=== PATIENT | male | born 1965 | race African-American/Black ===

== ENCOUNTER 2017-06-14 17:22 | Inpatient (IN) | payer OTHER ==
[~2017-06-14] VITALS: Ht 162.6 cm; Wt 74.8 kg
[2017-06-14] MEDS ORDERED: LANTUS SOL100 UNIT/1 SUBQ (18:01)
--- NOTE | 2017-06-14 18:21 | Emergency Room Report ---
History of Present Illness General Chief Complaint: General Complaint Source: Patient Present Illness HPI 52-year-old male presents to the emergency department complaining of weakness and dizziness 1 week. Patient reports that he has no previous medical history other than diabetes requiring insulin in the morning and night. Patient states he was recently diagnosed with diabetes he takes 30 units in the morning, and if needed 30 at night. Patient states last time he had any was last night patient reports intermittent palpitations and dizziness when he sits up or stands up. Patient denies symptoms of vertigo he denies recent head trauma denies fevers, chills. Patient reports polyuria and polydipsia. He denies abdominal pain, nausea, vomiting. Denies CP, Palpitations, LOC, AMS, dizziness, Changes in Vision, Sensation, paresthesias, or a sudden severe headache. Allergies: Coded Allergies: No Known Allergies (Unverified , 06/14/17) Patient History Past Medical History: see triage record, DM Past Surgical History: none Pertinent Family History: none Reviewed Nursing Documentation: PMH: Agreed, PSxH: Agreed Nursing Documentation-PMH Past Medical History: No History, Except For Review of Systems All Other Systems: negative except mentioned in HPI Physical Exam Vital Signs Date Time Temp Pulse Resp B/P (MAP) Pulse Ox O2 Delivery O2 Flow Rate FiO2 06/14/17 17:34 98.1 107 18 111/59 99 Room Air 98.1 Sp02 EP Interpretation: reviewed, normal General Appearance: no apparent distress, alert, GCS 15, non-toxic Head: normocephalic, atraumatic ENT: hearing grossly normal, normal voice Neck: full range of motion Respiratory: chest non-tender, lungs clear, normal breath sounds, no respiratory distress, no accessory muscle use, no wheezing, speaking full sentences, other - tachypneic Cardiovascular #1: regular rate, rhythm, no edema, normal capillary refill Gastrointestinal: normal bowel sounds, non tender, soft, no guarding Musculoskeletal: back normal, gait/station normal, normal range of motion, non- tender Neurologic: alert, oriented x3, responsive, motor strength/tone normal, sensory intact, normal gait, speech normal, grossly normal Psychiatric: judgement/insight normal Skin: normal color, no rash, warm/dry, well hydrated Medical Decision Making PA Attestation Dr. Love is my supervising Physician whom patient management has been discussed with. Diagnostic Impression: Primary Impression: Hyperglycemia due to type 2 diabetes mellitus Qualified Codes: E11.65 - Type 2 diabetes mellitus with hyperglycemia Additional Impression: Hypokalemia ER Course 52-year-old male presents to the emergency department complaining of weakness and dizziness 1 week. Patient reports that he has no previous medical history other than diabetes requiring insulin in the morning and night. Patient states he was recently diagnosed with diabetes he takes 30 units in the morning, and if needed 30 at night. Patient states last time he had any was last night patient reports intermittent palpitations and dizziness when he sits up or stands up. Patient denies symptoms of vertigo he denies recent head trauma denies fevers, chills. Patient reports polyuria and polydipsia. He denies abdominal pain, nausea, vomiting. Denies CP, Palpitations, LOC, AMS, dizziness, Changes in Vision, Sensation, paresthesias, or a sudden severe headache. Ddx considered but are not limited to OH, Dysrhythmia, CVA, DKA, hyperglycemia, electrolyte imbalance, dehydration just to name a few. Vital signs: tachypneic, otherwise are WNL, pt. is afebrile, tachypneic H&PE are most consistent with hyperglycemia ORDERS: -Bedside Accu-Chek about 500. -CBC,: Unremarkable CMP: glucose elevated 609, hyponatremia, hypokalemia *-Corrected Sodium Calc is 128. Negative acetone, Troponin,: 0.00/ WNL UA: 4+ glucose only - ABG: elevated PH, and low pc02, normal bicarb. ED INTERVENTIONS: -NS bolus 1 liter x 2 - 20 Meq KCl- IV -60meq Kcl PO - 10 Units Insulin IV DISPOSITION: at this time pt. will be admitted to for hyperglycemia. Signed out to Dr. Gamez for facilitation of admission Labs Test 06/14/17 18:08 06/14/17 18:23 Arterial Blood pH 7.527 (7.350-7.450) Arterial Blood Partial Pressure CO2 30.0 mmHg (35.0-45.0) Arterial Blood Partial Pressure O2 97.4 mmHg (75.0-100.0) Arterial Blood HCO3 24.3 mmol/L (22.0-26.0) Arterial Blood Oxygen Saturation 97.6 % (92.0-98.0) Arterial Blood Base Excess 2.4 Jose Test Positive White Blood Count 10.6 K/UL (4.8-10.8) Red Blood Count 4.46 M/UL (4.70-6.10) Hemoglobin 14.2 G/DL (14.2-18.0) Hematocrit 40.1 % (42.0-52.0) Mean Corpuscular Volume 90 FL (80-99) Mean Corpuscular Hemoglobin 31.8 PG (27.0-31.0) Mean Corpuscular Hemoglobin Concent 35.4 G/DL (32.0-36.0) Red Cell Distribution Width 10.3 % (11.6-14.8) Platelet Count 371 K/UL (150-450) Mean Platelet Volume 6.2 FL (6.5-10.1) Neutrophils (%) (Auto) 59.9 % (45.0-75.0) Lymphocytes (%) (Auto) 31.0 % (20.0-45.0) Monocytes (%) (Auto) 7.9 % (1.0-10.0) Eosinophils (%) (Auto) 0.1 % (0.0-3.0) Basophils (%) (Auto) 1.1 % (0.0-2.0) Urine Color Pale yellow Urine Appearance Clear Urine pH 6 (4.5-8.0) Urine Specific [place] 1.010 (1.005-1.035) Urine Protein Negative (NEGATIVE) Urine Glucose (UA) 4+ (NEGATIVE) Urine Ketones Negative (NEGATIVE) Urine Occult Blood Negative (NEGATIVE) Urine Nitrite Negative (NEGATIVE) Urine Bilirubin Negative (NEGATIVE) Urine Urobilinogen Normal MG/DL (0.0-1.0) Urine Leukocyte Esterase Negative (NEGATIVE) Sodium Level 116 MMOL/L (136-145) Potassium Level 2.7 MMOL/L (3.5-5.1) Chloride Level 76 MMOL/L (98-107) Carbon Dioxide Level 28 MMOL/L (21-32) Anion Gap 12 mmol/L (5-15) Blood Urea Nitrogen 22 mg/dL (7-18) Creatinine 1.9 MG/DL (0.55-1.30) Estimat Glomerular Filtration Rate 45.3 mL/min (>60) Glucose Level 609 MG/DL (74-106) Calcium Level 9.2 MG/DL (8.5-10.1) Magnesium Level 2.0 MG/DL (1.8-2.4) Total Bilirubin 0.4 MG/DL (0.2-1.0) Aspartate Amino Transf (AST/SGOT) 13 U/L (15-37) Alanine Aminotransferase (ALT/SGPT) 16 U/L (12-78) Alkaline Phosphatase 104 U/L (46-116) Troponin I 0.000 ng/mL (0.000-0.056) Total Protein 7.6 G/DL (6.4-8.2) Albumin 3.5 G/DL (3.4-5.0) Globulin 4.1 g/dL Albumin/Globulin Ratio 0.9 (1.0-2.7) Acetone Level Negative (NEGATIVE) EKG Diagnostic Results EP Interpretation: Dr. Love Rate: normal Rhythm: NSR ST Segments: other - inverted T-waves in leads 2, 3 and AvF. ASA given to the pt in ED: No PA Scribe Text This EKG interpretation has been scribed by ENRIQUE Askew Last Vital Signs Date Time Temp Pulse Resp B/P (MAP) Pulse Ox O2 Delivery O2 Flow Rate FiO2 06/14/17 17:34 98.1 107 18 111/59 99 Room Air 98.1 Disposition: ADMITTED INPATIENT Condition: Serious Signed Out To: Dr. Gamez Referrals: [facility],REFERRING (PCP) Anastasia Askew Jun 14, 2017 18:21
[2017-06-14 18:43] LABS: APPEARANCE,URINE CLEAR; BILIRUBIN, URINE NEGATIVE (NEGATIVE); COLOR,URINE PALE YELLOW; GLUCOSE, URINE (UA) 4+ (NEGATIVE); KETONES,URINE NEGATIVE (NEGATIVE); LEUKOCYTE ESTERASE ,URINE NEGATIVE (NEGATIVE); NITRITE,URINE NEGATIVE (NEGATIVE); PH,URINE 6 (4.5-8.0); PROTEIN,URINE NEGATIVE (NEGATIVE); UROBILINOGEN,URINE NORMAL MG/DL (0.0-1.0)
[2017-06-14 18:53] LABS: BASOPHILS % (AUTO) 1.1 % (0.0-2.0); EOSINOPHILS % (AUTO) 0.1 % (0.0-3.0); HEMATOCRIT 40.1 % (42.0-52.0); HEMOGLOBIN 14.2 G/DL (14.2-18.0); MEAN CORPUSCULAR VOLUME 90 FL (80-99); MONOCYTES % (AUTO) 7.9 % (1.0-10.0); NEUTROPHILS % (AUTO) 59.9 % (45.0-75.0); PLATELET COUNT 371 K/UL (150-450); RED BLOOD COUNT 4.46 M/UL (4.70-6.10); RED CELL DISTRIBUTION WIDTH 10.3 % (11.6-14.8); WHITE BLOOD COUNT 10.6 K/UL (4.8-10.8)
[2017-06-14 19:10] LABS: ALANINE AMINOTRANSFERASE 16 U/L (12-78); ALBUMIN 3.5 G/DL (3.4-5.0); ALBUMIN/GLOBULIN RATIO 0.9 (1.0-2.7); ALKALINE PHOSPHATASE 104 U/L (46-116); ANION GAP 12 mmol/L (5-15); ASPARTATE AMINO TRANSFERASE 13 U/L (15-37); BILIRUBIN,TOTAL 0.4 MG/DL (0.2-1.0); BLOOD UREA NITROGEN 22 mg/dL (7-18); CALCIUM 9.2 MG/DL (8.5-10.1); CARBON DIOXIDE 28 MMOL/L (21-32); CHLORIDE 76 MMOL/L (98-107); CREATININE 1.9 MG/DL (0.55-1.30)
[2017-06-14 19:13] LABS: POTASSIUM 2.7 MMOL/L (3.5-5.1); SODIUM 116 MMOL/L (136-145)
[2017-06-14 23:00] VITALS: BP 122/60
[2017-06-14] MEDS ORDERED: SEROQUEL300 MG ORAL (23:21)
[2017-06-15 00:45] VITALS: BP 113/71
[2017-06-15] MEDS ORDERED: Morphine Sulfate 2mg/ml Inj IVP PRN (01:30)
[2017-06-15] MEDS ORDERED: D5 1/2NS 1,000 ML IV SCH (01:30)
[2017-06-15 04:00] VITALS: BP 106/53
[2017-06-15] MEDS: NovoLOG Insulin Flexpen SUBQ SCH ×7 (06:23→20:48)
[2017-06-15 08:00] VITALS: BP 108/65
[2017-06-15 08:01] LABS: HEMATOCRIT 33.7 % (42.0-52.0); HEMOGLOBIN 11.9 G/DL (14.2-18.0); MEAN CORPUSCULAR VOLUME 90 FL (80-99); PLATELET COUNT 311 K/UL (150-450); RED BLOOD COUNT 3.74 M/UL (4.70-6.10); RED CELL DISTRIBUTION WIDTH 10.5 % (11.6-14.8); WHITE BLOOD COUNT 8.1 K/UL (4.8-10.8)
[2017-06-15 08:10] LABS: ANION GAP 7 mmol/L (5-15); BLOOD UREA NITROGEN 14 mg/dL (7-18); CALCIUM 8.2 MG/DL (8.5-10.1); CARBON DIOXIDE 29 MMOL/L (21-32); CHLORIDE 92 MMOL/L (98-107); CREATININE 1.3 MG/DL (0.55-1.30); POTASSIUM 2.5 MMOL/L (3.5-5.1); SODIUM 128 MMOL/L (136-145)
--- NOTE | 2017-06-15 08:17 | Consultation ---
Consult Note Consult Note asked to eval for Na 116 52-year-old male presents to the emergency department complaining of weakness and dizziness 1 week. Patient reports that he has no previous medical history other than diabetes requiring insulin in the morning and night. Patient states he was recently diagnosed with diabetes he takes 30 units in the morning, and if needed 30 at night. Patient states last time he had any was last night patient reports intermittent palpitations and dizziness when he sits up or stands up. Patient denies symptoms of vertigo he denies recent head trauma denies fevers, chills. Patient reports polyuria and polydipsia. He denies abdominal pain, nausea, vomiting. Denies CP, Palpitations, LOC, AMS, dizziness, Changes in Vision, Sensation, paresthesias, or a sudden severe headache. admitted for high Glucose h/o Dm and psych disease Assessment/Plan Hyponatremia: ? Depletionaal DM OOC Anemia Plan: Urine studies S osmolality , TSH , Uric 3% Saline fu after above results monitor lytierra [place] and Phos supplement ANA HUNTER Jun 15, 2017 08:16
[2017-06-15 08:42] LABS: ALANINE AMINOTRANSFERASE 15 U/L (12-78); ALBUMIN/GLOBULIN RATIO 0.9 (1.0-2.7); ALKALINE PHOSPHATASE 82 U/L (46-116); ANION GAP 9 mmol/L (5-15); ASPARTATE AMINO TRANSFERASE 14 U/L (15-37); BILIRUBIN,TOTAL 0.5 MG/DL (0.2-1.0); BLOOD UREA NITROGEN 14 mg/dL (7-18); CALCIUM 8.4 MG/DL (8.5-10.1); CARBON DIOXIDE 27 MMOL/L (21-32); CHLORIDE 92 MMOL/L (98-107); CREATININE 1.3 MG/DL (0.55-1.30); PHOSPHORUS 1.9 MG/DL (2.5-4.9); SODIUM 128 MMOL/L (136-145)
[2017-06-15 08:49] LABS: CHOLESTEROL 195 MG/DL (< 200); HDL CHOLESTEROL 45 MG/DL (40-60); TRIGLYCERIDES 157 MG/DL (30-150)
[2017-06-15 08:58] LABS: POTASSIUM 2.6 MMOL/L (3.5-5.1)
[2017-06-15] MEDS ORDERED: NaCl 3% 500ml 500 ML IV ONE (09:30)
[2017-06-15] MEDS: Levemir Flexpen SUBQ SCH ×2 (09:55→20:47)
--- NOTE | 2017-06-15 11:36 | Neurology Progress Note ---
Objective Physical Exam Last Vital Signs Date Time Temp Pulse Resp B/P (MAP) Pulse Ox O2 Delivery O2 Flow Rate FiO2 06/15/17 08:00 97.2 96 18 108/65 97 Room Air 97.2 Laboratory Tests Test 06/14/17 18:08 06/14/17 18:23 06/15/17 06:50 Arterial Blood pH 7.527 (7.350-7.450) Arterial Blood Partial Pressure CO2 30.0 mmHg (35.0-45.0) L Arterial Blood Partial Pressure O2 97.4 mmHg (75.0-100.0) Arterial Blood HCO3 24.3 mmol/L (22.0-26.0) Arterial Blood Oxygen Saturation 97.6 % (92.0-98.0) Arterial Blood Base Excess 2.4 Jose Test Positive White Blood Count 10.6 K/UL (4.8-10.8) 8.1 K/UL (4.8-10.8) Red Blood Count 4.46 M/UL (4.70-6.10) L 3.74 M/UL (4.70-6.10) L Hemoglobin 14.2 G/DL (14.2-18.0) 11.9 G/DL (14.2-18.0) L Hematocrit 40.1 % (42.0-52.0) L 33.7 % (42.0-52.0) L Mean Corpuscular Volume 90 FL (80-99) 90 FL (80-99) Mean Corpuscular Hemoglobin 31.8 PG (27.0-31.0) H 31.9 PG (27.0-31.0) H Mean Corpuscular Hemoglobin Concent 35.4 G/DL (32.0-36.0) 35.4 G/DL (32.0-36.0) Red Cell Distribution Width 10.3 % (11.6-14.8) L 10.5 % (11.6-14.8) L Platelet Count 371 K/UL (150-450) 311 K/UL (150-450) Mean Platelet Volume 6.2 FL (6.5-10.1) L 6.0 FL (6.5-10.1) L Neutrophils (%) (Auto) 59.9 % (45.0-75.0) % (45.0-75.0) Lymphocytes (%) (Auto) 31.0 % (20.0-45.0) % (20.0-45.0) Monocytes (%) (Auto) 7.9 % (1.0-10.0) % (1.0-10.0) Eosinophils (%) (Auto) 0.1 % (0.0-3.0) % (0.0-3.0) Basophils (%) (Auto) 1.1 % (0.0-2.0) % (0.0-2.0) Urine Color Pale yellow Urine Appearance Clear Urine pH 6 (4.5-8.0) Urine Specific [place] 1.010 (1.005-1.035) Urine Protein Negative (NEGATIVE) Urine Glucose (UA) 4+ (NEGATIVE) H Urine Ketones Negative (NEGATIVE) Urine Occult Blood Negative (NEGATIVE) Urine Nitrite Negative (NEGATIVE) Urine Bilirubin Negative (NEGATIVE) Urine Urobilinogen Normal MG/DL (0.0-1.0) Urine Leukocyte Esterase Negative (NEGATIVE) Sodium Level 116 MMOL/L (136-145) *L 128 MMOL/L (136-145) L Potassium Level 2.7 MMOL/L (3.5-5.1) *L 2.6 MMOL/L (3.5-5.1) *L Chloride Level 76 MMOL/L (98-107) L 92 MMOL/L (98-107) L Carbon Dioxide Level 28 MMOL/L (21-32) 27 MMOL/L (21-32) Anion Gap 12 mmol/L (5-15) 9 mmol/L (5-15) Blood Urea Nitrogen 22 mg/dL (7-18) H 14 mg/dL (7-18) Creatinine 1.9 MG/DL (0.55-1.30) H 1.3 MG/DL (0.55-1.30) Estimat Glomerular Filtration Rate 45.3 mL/min (>60) > 60 mL/min (>60) Glucose Level 609 MG/DL (74-106) *H 314 MG/DL (74-106) H Calcium Level 9.2 MG/DL (8.5-10.1) 8.4 MG/DL (8.5-10.1) L Magnesium Level 2.0 MG/DL (1.8-2.4) 1.8 MG/DL (1.8-2.4) Total Bilirubin 0.4 MG/DL (0.2-1.0) 0.5 MG/DL (0.2-1.0) Aspartate Amino Transf (AST/SGOT) 13 U/L (15-37) L 14 U/L (15-37) L Alanine Aminotransferase (ALT/SGPT) 16 U/L (12-78) 15 U/L (12-78) Alkaline Phosphatase 104 U/L (46-116) 82 U/L (46-116) Troponin I 0.000 ng/mL (0.000-0.056) Total Protein 7.6 G/DL (6.4-8.2) 6.2 G/DL (6.4-8.2) L Albumin 3.5 G/DL (3.4-5.0) 3.0 G/DL (3.4-5.0) L Globulin 4.1 g/dL 3.2 g/dL Albumin/Globulin Ratio 0.9 (1.0-2.7) L 0.9 (1.0-2.7) L Acetone Level Negative (NEGATIVE) Differential Total Cells Counted 100 Neutrophils % (Manual) 37 % (45-75) L Lymphocytes % (Manual) 53 % (20-45) H Monocytes % (Manual) 10 % (1-10) Eosinophils % (Manual) 0 % (0-3) Basophils % (Manual) 0 % (0-2) Band Neutrophils 0 % (0-8) Platelet Estimate Adequate Platelet Morphology Normal Anisocytosis 1+ Hemoglobin A1c 12.0 % (4.3-6.0) H Osmolality 280 mOsm/kg (297-317) L Uric Acid 4.9 MG/DL (2.6-7.2) Phosphorus Level 1.9 MG/DL (2.5-4.9) L Triglycerides Level 157 MG/DL (30-150) H Cholesterol Level 195 MG/DL (< 200) LDL Cholesterol 128 mg/dL (<100) H HDL Cholesterol 45 MG/DL (40-60) Cholesterol/HDL Ratio 4.3 (3.3-4.4) Thyroid Stimulating Hormone (TSH) 1.588 uiU/mL (0.358-3.740) Impression/Recommendations Problems: (1) Syncope and collapse (2) Hyperglycemia due to type 2 diabetes mellitus Status: unchanged Recommendations #[id number] IVETH ROSENTHAL Jun 15, 2017 11:36
[2017-06-15 12:00] VITALS: BP 110/68
--- NOTE | 2017-06-15 15:06 | Cardiac Electrophysiology PN ---
Subjective Subjective Dictated [id number] Objective Last 24 Hour Vital Signs Date Time Temp Pulse Resp B/P (MAP) Pulse Ox O2 Delivery O2 Flow Rate FiO2 06/15/17 12:00 88 06/15/17 08:00 97.2 96 18 108/65 97 Room Air 97.2 06/15/17 08:00 97 06/15/17 04:00 97.3 101 20 106/53 96 Room Air 97.3 06/15/17 04:00 97 06/15/17 00:45 97.9 101 18 113/71 100 Room Air 97.9 06/15/17 00:30 98.1 90 14 122/60 100 Room Air 98.1 06/14/17 23:00 98.1 90 14 122/60 100 Room Air 98.1 06/14/17 17:34 98.1 107 18 111/59 99 Room Air 98.1 Intake and Output 06/14/17 06/15/17 19:00 07:00 Intake Total 313 ml Balance 313 ml IV Total 313 ml # Voids 1 2 Laboratory Tests Test 06/14/17 18:08 06/14/17 18:23 06/15/17 06:50 Arterial Blood pH 7.527 (7.350-7.450) Arterial Blood Partial Pressure CO2 30.0 mmHg (35.0-45.0) L Arterial Blood Partial Pressure O2 97.4 mmHg (75.0-100.0) Arterial Blood HCO3 24.3 mmol/L (22.0-26.0) Arterial Blood Oxygen Saturation 97.6 % (92.0-98.0) Arterial Blood Base Excess 2.4 Jose Test Positive White Blood Count 10.6 K/UL (4.8-10.8) 8.1 K/UL (4.8-10.8) Red Blood Count 4.46 M/UL (4.70-6.10) L 3.74 M/UL (4.70-6.10) L Hemoglobin 14.2 G/DL (14.2-18.0) 11.9 G/DL (14.2-18.0) L Hematocrit 40.1 % (42.0-52.0) L 33.7 % (42.0-52.0) L Mean Corpuscular Volume 90 FL (80-99) 90 FL (80-99) Mean Corpuscular Hemoglobin 31.8 PG (27.0-31.0) H 31.9 PG (27.0-31.0) H Mean Corpuscular Hemoglobin Concent 35.4 G/DL (32.0-36.0) 35.4 G/DL (32.0-36.0) Red Cell Distribution Width 10.3 % (11.6-14.8) L 10.5 % (11.6-14.8) L Platelet Count 371 K/UL (150-450) 311 K/UL (150-450) Mean Platelet Volume 6.2 FL (6.5-10.1) L 6.0 FL (6.5-10.1) L Neutrophils (%) (Auto) 59.9 % (45.0-75.0) % (45.0-75.0) Lymphocytes (%) (Auto) 31.0 % (20.0-45.0) % (20.0-45.0) Monocytes (%) (Auto) 7.9 % (1.0-10.0) % (1.0-10.0) Eosinophils (%) (Auto) 0.1 % (0.0-3.0) % (0.0-3.0) Basophils (%) (Auto) 1.1 % (0.0-2.0) % (0.0-2.0) Urine Color Pale yellow Urine Appearance Clear Urine pH 6 (4.5-8.0) Urine Specific [place] 1.010 (1.005-1.035) Urine Protein Negative (NEGATIVE) Urine Glucose (UA) 4+ (NEGATIVE) H Urine Ketones Negative (NEGATIVE) Urine Occult Blood Negative (NEGATIVE) Urine Nitrite Negative (NEGATIVE) Urine Bilirubin Negative (NEGATIVE) Urine Urobilinogen Normal MG/DL (0.0-1.0) Urine Leukocyte Esterase Negative (NEGATIVE) Sodium Level 116 MMOL/L (136-145) *L 128 MMOL/L (136-145) L Potassium Level 2.7 MMOL/L (3.5-5.1) *L 2.6 MMOL/L (3.5-5.1) *L Chloride Level 76 MMOL/L (98-107) L 92 MMOL/L (98-107) L Carbon Dioxide Level 28 MMOL/L (21-32) 27 MMOL/L (21-32) Anion Gap 12 mmol/L (5-15) 9 mmol/L (5-15) Blood Urea Nitrogen 22 mg/dL (7-18) H 14 mg/dL (7-18) Creatinine 1.9 MG/DL (0.55-1.30) H 1.3 MG/DL (0.55-1.30) Estimat Glomerular Filtration Rate 45.3 mL/min (>60) > 60 mL/min (>60) Glucose Level 609 MG/DL (74-106) *H 314 MG/DL (74-106) H Calcium Level 9.2 MG/DL (8.5-10.1) 8.4 MG/DL (8.5-10.1) L Magnesium Level 2.0 MG/DL (1.8-2.4) 1.8 MG/DL (1.8-2.4) Total Bilirubin 0.4 MG/DL (0.2-1.0) 0.5 MG/DL (0.2-1.0) Aspartate Amino Transf (AST/SGOT) 13 U/L (15-37) L 14 U/L (15-37) L Alanine Aminotransferase (ALT/SGPT) 16 U/L (12-78) 15 U/L (12-78) Alkaline Phosphatase 104 U/L (46-116) 82 U/L (46-116) Troponin I 0.000 ng/mL (0.000-0.056) Total Protein 7.6 G/DL (6.4-8.2) 6.2 G/DL (6.4-8.2) L Albumin 3.5 G/DL (3.4-5.0) 3.0 G/DL (3.4-5.0) L Globulin 4.1 g/dL 3.2 g/dL Albumin/Globulin Ratio 0.9 (1.0-2.7) L 0.9 (1.0-2.7) L Acetone Level Negative (NEGATIVE) Differential Total Cells Counted 100 Neutrophils % (Manual) 37 % (45-75) L Lymphocytes % (Manual) 53 % (20-45) H Monocytes % (Manual) 10 % (1-10) Eosinophils % (Manual) 0 % (0-3) Basophils % (Manual) 0 % (0-2) Band Neutrophils 0 % (0-8) Platelet Estimate Adequate Platelet Morphology Normal Anisocytosis 1+ Hemoglobin A1c 12.0 % (4.3-6.0) H Osmolality 280 mOsm/kg (297-317) L Uric Acid 4.9 MG/DL (2.6-7.2) Phosphorus Level 1.9 MG/DL (2.5-4.9) L Triglycerides Level 157 MG/DL (30-150) H Cholesterol Level 195 MG/DL (< 200) LDL Cholesterol 128 mg/dL (<100) H HDL Cholesterol 45 MG/DL (40-60) Cholesterol/HDL Ratio 4.3 (3.3-4.4) Thyroid Stimulating Hormone (TSH) 1.588 uiU/mL (0.358-3.740) SHABNAM BURNETT Jun 15, 2017 15:06
--- NOTE | 2017-06-15 15:27 | Diagnostic Imaging Report ---
Indication: Altered mental status Technique: sagittal T1 fast spin echo, axial T1 FLAIR, axial T2 FLAIR, axial T2 FS PROPELLER, axial T2* GRE, axial diffusion weighted images. ADC and exponential ADC maps generated Comparison: none Findings: Motion artifact degrades some of the sequences. No abnormal areas of restricted diffusion to suggest acute infarction. No acute hemorrhage or edema. No mass effect nor midline shift. There is mild age-related enlargement of the ventricles and extra axial CSF spaces.. Visualized orbits and sinuses are unremarkable. Impression: Mild age-related volume loss Negative for acute intracranial bleed, mass effect, or infarct
[2017-06-15 16:00] VITALS: BP 111/72
[2017-06-15] MEDS ORDERED: Potassium Phosphate 30 MM in NS 275 ML IV ONE (17:00)
[2017-06-15 20:00] VITALS: BP 105/69
--- NOTE | 2017-06-15 21:00 | History and Physical Report ---
DATE OF ADMISSION: 06/14/2017 TIME: 2 p.m. CONSULTANTS: 1. Rogelio Fraser M.D. 2. Jhonny Oconnell M.D. 3. Jacky Bernard M.D. 4. Rashard Plummer M.D. CHIEF COMPLAINT: Weakness, lightheaded, IDDM, hypokalemia. BRIEF HISTORY: This 52-year-old male, who lives at home, presents with a history of weakness, possible syncopal episode after feeling lightheaded, thought sugar may be low. The patient came, diagnosed with weakness and loss of consciousness, IDDM, and hypokalemia, admitted to telemetry for further care. Currently, calm in bed. No complaint. No chest pain. No shortness of breath. No nausea, vomiting, or diarrhea. PAST MEDICAL HISTORY: IDDM. PAST SURGICAL HISTORY: Heart surgery. MEDICATIONS: Levemir, NovoLog, dextrose, insulin, quetiapine, morphine and potassium. ALLERGIES: Denies. SOCIAL HISTORY: No smoking. No alcohol. No intravenous drug abuse. FAMILY HISTORY: Noncontributory. PHYSICAL EXAMINATION: GENERAL: Calm in bed, oriented x3, no acute distress. VITAL SIGNS: Temperature is 97 degrees, pulse 96, respirations 18, and blood pressure 108/65. CARDIOVASCULAR: No murmur. LUNGS: Distant and clear. ABDOMEN: Positive bowel sounds. Soft, nontender and nondistended. EXTREMITIES: No cyanosis, clubbing, or edema. NEUROLOGIC: The patient moves all extremities, but slightly weak. LABORATORY AND DIAGNOSTIC DATA: Hemoglobin and hematocrit 11.9/33 and otherwise CBC is normal. Sodium 128, potassium 2.6, chloride 92, and glucose 314. Calcium 8.4. Albumin 3.0. Triglycerides 157 otherwise normal. Urinalysis, 4+ glucose. Urine toxicology is acetone negative. ASSESSMENT: 1. Lightheaded, loss of consciousness. 2. Weakness. 3. Insulin-dependent diabetes mellitus. 4. Hypoalbumin. 5. Hypokalemia. PLAN: Replace potassium. OT/PT. Dietary evaluation. CBC and BMP in the morning. Blood pressure and blood sugar control. Dr. Fraser, Dr. Oconnell, Dr. Bernard, and Dr. Champagne to consult. We will continue to follow this patient. Jason Fields D.O. DR: RICK JOB#: [id number] CC:
--- NOTE | 2017-06-15 22:15 | Consultation ---
DATE OF CONSULTATION: 06/15/2017 NEUROLOGICAL CONSULTATION CONSULTING PHYSICIAN: Jhonny Oconnell M.D. REQUESTING PHYSICIAN: Jason Fields D.O. HISTORY OF PRESENT ILLNESS: This is a 52-year-old male, seen in neurological consultation to evaluate the episodes of transient unresponsiveness. According to the patient, he was diagnosed with diabetes approximately two months ago and placed on insulin. He indicates that prior to being diagnosed, he was "not drinking water ever" but instead having a pint of juice daily. The patient was admitted to this hospital after having an episode of unresponsiveness. He informed that last week he had some generalized weakness and dizziness occurring when he was getting up. On the day of admission, as he woke up, he felt lightheaded when he got up, he lost consciousness and fell down to the ground. He found himself lying on the ground without evidence of trauma without tongue biting. No urine or bowel incontinence, but had profound generalized weakness, later he was able to get up on his own and lie down resting in bed. He continued to have dizziness predominantly when he tried to get up. With this, he was brought to emergency room. He was indicating that he has evidence of polyuria and polydipsia, had intermittent palpitations, positional dizziness. There was no evidence of vertigo. No nausea. No vomiting. No unilateral weakness, numbness, or tingling. His vital signs on admission were stable, blood pressure 111/59, respirations 18, heart rate of 107 and temperature 98.1 degrees. Laboratory work included CBC study with hematocrit 40.1, elevated MCH. His urinalysis, 4+ glucose. Toxicology panel, acetone negative. Chemistry panel on admission with sodium , potassium 2.7. BUN of 22, creatinine 1.9, and blood sugar of 609. Normal troponin. Blood sugar down to 314. Osmolality 280. He has a positive hemoglobin A1c of 12.0. Low calcium 8.4, phosphorus 1.9, albumin 3.0. Lipid panel with elevated LDL of 128 and triglycerides of 157. Normal TSH. The patient indicated that he slept well, and while supine he is feeling fine except when trying to get up he developed dizziness. His treatment included normal saline bolus one liter with potassium supplement and 10 units insulin. Current vital signs with temperature 97.2 degrees, heart rate of 101, and blood pressure 106/53. PAST MEDICAL HISTORY: The patient has a history of psychiatric disorder, he is on Seroquel 300 mg at bedtime. Currently on insulin subcutaneously. SOCIAL HISTORY: He lives with his cousin. He works part-time as a stand-up architecture intern. Denies alcohol or drug abuse. Nonsmoker. FAMILY HISTORY: Noncontributory. REVIEW OF SYMPTOMS: Currently feeling well. No headache, but feels somewhat dizzy when getting up. No chest pain. No palpitations. No respiratory problems. Denies abdominal pain or discomfort. No urine or bowel incontinence. PHYSICAL EXAMINATION: GENERAL: A well-developed and well-nourished man, not in acute distress, lying comfortably in bed. VITAL SIGNS: Now are stable, heart rate of 100 and blood pressure 108/65. HEENT: Head, normocephalic. There is no evidence of trauma. Eyes, ears, and throat are clear. NECK: Supple. No meningeal signs. MUSCULOSKELETAL: Unremarkable. There are no deformities. Peripheral pulses 1+ symmetric. MENTAL STATUS: Alert and oriented x3. Speech is fluent. Language intact. Somewhat blunt affect, but coherent. Follows commands. CRANIAL NERVE II: Pupils are 2 mm responding to light and accommodation. Extraocular movement intact. No nystagmus. There is enlargement of right orbital fissure. CRANIAL NERVE VII: No facial asymmetry. CRANIAL NERVE VIII: Normal hearing. CRANIAL NERVES IX THROUGH XII: Tongue is in midline. Symmetric palate elevation. MOTOR EXAMINATION: Normal muscle tone and strength 5/5 in all extremities. No involuntary movement. No pronation drift. Deep tendon reflexes 1+ symmetric with downgoing toes on both sides. SENSORY EXAM: Normal to pinprick light touch. Gait is slow, but stable. IMPRESSION: 1. History of syncopal episode, probably vasovagal. There is no evidence of seizure activity. 2. Mild right facial weakness. 3. Insulin-dependent diabetes mellitus, poor control. 4. History of chronic psychiatric disorder. RECOMMENDATIONS: Check baseline MRI of the brain to rule out lacunar stroke to explain new right periorbital weakness. Continue with endocrine correction. Consider aspirin 81 mg q.i.d. and statins in presence of stroke risk factors. Thank you for allowing me to see this interesting patient in neurological consultation. Jhonny Kassidy Oconnell DR: MARIANNE JOB#: [id number] CC:
[2017-06-16] VITALS: BP 100/59
--- NOTE | 2017-06-16 01:00 | Consultation ---
DATE OF CONSULTATION: 06/15/2017 CARDIOLOGY CONSULTATION CONSULTING PHYSICIAN: Rashard Champagne M.D. REFERRING PHYSICIAN: Jason Fields D.O. REASON FOR CONSULTATION: Abnormal electrocardiogram and profound hypokalemia with potassium of 2.5. HISTORY OF PRESENT ILLNESS: The patient is a 52-year-old gentleman with history of insulin-dependent diabetes for last six months, who came to the emergency room after he had generalized weakness and dizziness for about a week. The patient also had a syncopal episode. The patient also had intermittent palpitation. The patient's blood glucose on admission was in 600 range, but the blood pressure was noted with a pulse of 107 and respirations of 18. His EKG showed inferior wall ischemia. His laboratory work, however, showed potassium only 2.5. Cardiology consultation was obtained for further evaluation and management. PAST MEDICAL HISTORY: Include insulin-dependent diabetes. SOCIAL HISTORY: Does not smoke or drink alcohol. FAMILY HISTORY: Noncontributory. REVIEW OF SYSTEMS: Performed and was negative other than what was mentioned in the history of present illness. PHYSICAL EXAMINATION: VITAL SIGNS: Blood pressure is 108/65, pulse 96, respirations 18, and temperature 97.2 degrees. HEAD AND NECK: Showed no JVD. LUNGS: Clear. CARDIOVASCULAR: Shows regular S1 and S2 with no gallop or murmur. ABDOMEN: Soft. EXTREMITIES: There is no pitting edema. LABORATORY DATA: His labs show sodium 128, potassium is 2.6, BUN of 14, creatinine 1.3, and glucose of 314. Hemoglobin A1c is 12. Calcium was 8.4. is 1.9. Triglycerides 157. TSH is 1.5. White count is 8.1, hemoglobin 11.9, and platelet count of 311. Acetaminophen level in the urine was negative. His urinalysis showed 4+ glucose. ASSESSMENT AND PLAN: 1. Abnormal electrocardiogram with inferior wall ischemia. We will completely rule out myocardial infarction protocol in this diabetic patient. He denies any chest pain. We will get an echocardiogram to evaluate for ejection fraction and wall motion abnormality as well. 2. Severe hypokalemia. Potassium will be replaced. 3. Insulin-dependent diabetes, blood glucose of more than 600, currently on insulin. 4. Status post syncope, could be secondary to the patient's severe hyperglycemia. Again, the patient will be undergoing a CT of the brain and a carotid duplex. Thank you very much, Dr. Fields, for allowing me to participate in the care of this patient. Please do not hesitate to contact me for any questions regarding my evaluation. Rashard Champagne M.D. DR: Kaelyn JOB#: [id number] CC:
[2017-06-16 04:00] VITALS: BP 99/69
[2017-06-16] MEDS: NovoLOG Insulin Flexpen SUBQ SCH ×3 (06:20→11:37)
--- NOTE | 2017-06-16 06:51 | General Progress Note ---
Assessment/Plan Problem List: (1) Hyperglycemia due to type 2 diabetes mellitus ICD Codes: E11.65 - Type 2 diabetes mellitus with hyperglycemia SNOMED: 294082856738124, 89594192 Qualifiers: Qualified Codes: E11.65 - Type 2 diabetes mellitus with hyperglycemia (2) Syncope and collapse ICD Codes: R55 - Syncope and collapse SNOMED: 326655847 (3) Hypokalemia ICD Codes: E87.6 - Hypokalemia SNOMED: 47261125 Assessment/Plan increase Levemir to 15 units bid increase Novolog to 10 units ac tid + NISS Subjective Allergies: Coded Allergies: No Known Allergies (Unverified , 06/14/17) All Systems: reviewed and negative except above Subjective presented to ED with symptomatic hyperglycemia, hypokalemia and weakness on Lantus 30 units bid as OP Objective Last 24 Hour Vital Signs Date Time Temp Pulse Resp B/P (MAP) Pulse Ox O2 Delivery O2 Flow Rate FiO2 06/16/17 03:33 92 06/16/17 00:00 98.2 98 20 100/59 99 Room Air 98.2 06/15/17 23:54 98 06/15/17 20:00 98.2 93 20 105/69 93 Room Air 98.2 06/15/17 19:06 92 06/15/17 16:00 97.2 98 18 111/72 97 Room Air 97.2 06/15/17 16:00 84 98 107 06/15/17 16:00 90 06/15/17 12:00 88 06/15/17 12:00 97.4 94 18 110/68 98 Room Air 97.4 06/15/17 08:00 97.2 96 18 108/65 97 Room Air 97.2 06/15/17 08:00 97 Intake and Output 06/15/17 06/16/17 19:00 07:00 Intake Total 536 ml Balance 536 ml Intake Oral 536 ml # Voids 1 Laboratory Tests 06/15/17 06:50: White Blood Count 8.1, Red Blood Count 3.74L, Hemoglobin 11.9L, Hematocrit 33.7L , Mean Corpuscular Volume 90, Mean Corpuscular Hemoglobin 31.9H, Mean Corpuscular Hemoglobin Concent 35.4, Red Cell Distribution Width 10.5L, Platelet Count 311, Mean Platelet Volume 6.0L, Neutrophils (%) (Auto) , Lymphocytes (%) (Auto) , Monocytes (%) (Auto) , Eosinophils (%) (Auto) , Basophils (%) (Auto) , Differential Total Cells Counted 100, Neutrophils % ( Manual) 37L, Lymphocytes % (Manual) 53H, Monocytes % (Manual) 10, Eosinophils % (Manual) 0, Basophils % (Manual) 0, Band Neutrophils 0, Platelet Estimate Adequate, Platelet Morphology Normal, Anisocytosis 1+, Sodium Level 128L, Potassium Level 2.6*L, Chloride Level 92L, Carbon Dioxide Level 27, Anion Gap 9 , Blood Urea Nitrogen 14, Creatinine 1.3, Estimat Glomerular Filtration Rate > 60, Glucose Level 314H, Hemoglobin A1c 12.0H, Osmolality 280L, Uric Acid 4.9, Calcium Level 8.4L, Phosphorus Level 1.9L, Magnesium Level 1.8, Total Bilirubin 0.5, Aspartate Amino Transf (AST/SGOT) 14L, Alanine Aminotransferase (ALT/SGPT) 15, Alkaline Phosphatase 82, C-Reactive Protein, Quantitative 0.6, Total Protein 6.2L, Albumin 3.0L, Globulin 3.2, Albumin/Globulin Ratio 0.9L, Triglycerides Level 157H, Cholesterol Level 195, LDL Cholesterol 128H, HDL Cholesterol 45, Cholesterol/HDL Ratio 4.3, Thyroid Stimulating Hormone (TSH) 1.588 06/15/17 15:40: Urine Osmolality 459H, Urine Random Sodium 47, Urine Opiates Screen Negative, Urine Barbiturates Screen Negative, Phencyclidine (PCP) Screen Negative, Urine Amphetamines Screen Negative, Urine Benzodiazepines Screen Negative, Urine Cocaine Screen Negative, Urine Marijuana (THC) Screen Negative Height (Feet): 5 Height (Inches): 4.00 Weight (Pounds): 165 General Appearance: no apparent distress Neck: normal alignment Cardiovascular: normal rate Respiratory/Chest: lungs clear Abdomen: normal bowel sounds Pelvis: normal external exam Edema: no edema noted Arm (L), no edema noted Arm (R), no edema noted Leg (L), no edema noted Leg (R), no edema noted Pedal (L), no edema noted Pedal (R), no edema noted Generalized Objective Current Medications Medications (Trade) Dose Ordered Sig/Dereck Route PRN Reason Start Time Stop Time Status Last Admin Dose Admin Dextrose (Dextrose 50%) STAT PRN IV Hypoglycemia 06/15/17 07:00 07/15/17 06:59 Insulin Aspart (NovoLOG) BEFORE MEALS AND HS SUBQ 06/15/17 06:30 07/15/17 06:29 06/16/17 06:20 Insulin Aspart (NovoLOG) 6 units NOVOTIAC SUBQ 06/15/17 08:00 07/15/17 07:59 06/16/17 06:21 Insulin Detemir (Levemir) 10 units Q12HR SUBQ 06/15/17 09:00 07/15/17 08:59 06/15/17 20:47 Morphine Sulfate (Morphine Sulfate) 2 mg Q4H PRN IVP For severe Pain 06/15/17 01:30 06/22/17 01:29 Potassium Chloride (K-Dur) 40 meq TWICE A DAY ORAL 06/16/17 09:00 07/16/17 08:59 Quetiapine Fumarate (SEROquel) 300 mg BEDTIME ORAL 06/15/17 02:15 07/15/17 02:14 06/15/17 20:45 Item Value Date Time Bedside Blood Glucose 214 mg/dl H 06/16/17 0630 Bedside Blood Glucose 288 mg/dl H 06/15/17 2100 Bedside Blood Glucose 283 mg/dl H 06/15/17 1738 Bedside Blood Glucose 267 mg/dl H 06/15/17 1152 Bedside Blood Glucose 281 mg/dl H 06/15/17 0955 Bedside Blood Glucose 327 mg/dl H 06/15/17 0623 Bedside Blood Glucose 201 mg/dl H 06/14/17 2336 JEMMA NOEL 16, 2018 06:51
[2017-06-16 08:00] VITALS: BP 107/71
[2017-06-16 08:44] LABS: HEMATOCRIT 34.2 % (42.0-52.0); MEAN CORPUSCULAR VOLUME 91 FL (80-99); PLATELET COUNT 311 K/UL (150-450); RED BLOOD COUNT 3.74 M/UL (4.70-6.10); RED CELL DISTRIBUTION WIDTH 10.7 % (11.6-14.8); WHITE BLOOD COUNT 6.6 K/UL (4.8-10.8)
[2017-06-16] MEDS ORDERED: Levemir Flexpen SUBQ SCH (09:00)
[2017-06-16 09:07] LABS: ALANINE AMINOTRANSFERASE 13 U/L (12-78); ALBUMIN 2.8 G/DL (3.4-5.0); ALBUMIN/GLOBULIN RATIO 0.8 (1.0-2.7); ALKALINE PHOSPHATASE 71 U/L (46-116); ASPARTATE AMINO TRANSFERASE 14 U/L (15-37); BILIRUBIN,TOTAL 0.4 MG/DL (0.2-1.0); BLOOD UREA NITROGEN 7 mg/dL (7-18); CALCIUM 8.1 MG/DL (8.5-10.1); CARBON DIOXIDE 23 MMOL/L (21-32); FERRITIN 480 NG/ML (8-388)
[2017-06-16 09:11] LABS: CHLORIDE 102 MMOL/L (98-107); POTASSIUM 3.9 MMOL/L (3.5-5.1); SODIUM 135 MMOL/L (136-145)
[2017-06-16 09:13] LABS: ANION GAP 10 mmol/L (5-15)
[2017-06-16 09:33] LABS: % IRON SATURATION 44 % (15-50); IRON 112 ug/dL (50-175); TOTAL IRON BINDING CAPACITY 255 ug/dL (250-450)
--- NOTE | 2017-06-16 10:57 | Neurology Progress Note ---
Interim History Interim History ROS Limited/Unobtainable: No Complaints: feel well Events: stable Objective Physical Exam Last Vital Signs Date Time Temp Pulse Resp B/P (MAP) Pulse Ox O2 Delivery O2 Flow Rate FiO2 06/16/17 08:00 96.3 104 18 107/71 96 Room Air 96.3 Laboratory Tests Test 06/15/17 15:40 06/16/17 07:00 Urine Osmolality 459 mOsm/kg (429-449) H Urine Random Sodium 47 mmol/L (20-110) Urine Opiates Screen Negative (NEGATIVE) Urine Barbiturates Screen Negative (NEGATIVE) Phencyclidine (PCP) Screen Negative (NEGATIVE) Urine Amphetamines Screen Negative (NEGATIVE) Urine Benzodiazepines Screen Negative (NEGATIVE) Urine Cocaine Screen Negative (NEGATIVE) Urine Marijuana (THC) Screen Negative (NEGATIVE) White Blood Count 6.6 K/UL (4.8-10.8) Red Blood Count 3.74 M/UL (4.70-6.10) L Hemoglobin 12.0 G/DL (14.2-18.0) L Hematocrit 34.2 % (42.0-52.0) L Mean Corpuscular Volume 91 FL (80-99) Mean Corpuscular Hemoglobin 31.9 PG (27.0-31.0) H Mean Corpuscular Hemoglobin Concent 34.9 G/DL (32.0-36.0) Red Cell Distribution Width 10.7 % (11.6-14.8) L Platelet Count 311 K/UL (150-450) Mean Platelet Volume 5.8 FL (6.5-10.1) L Neutrophils (%) (Auto) % (45.0-75.0) Lymphocytes (%) (Auto) % (20.0-45.0) Monocytes (%) (Auto) % (1.0-10.0) Eosinophils (%) (Auto) % (0.0-3.0) Basophils (%) (Auto) % (0.0-2.0) Neutrophils % (Manual) Pending Lymphocytes % (Manual) Pending Platelet Estimate Pending Platelet Morphology Pending Sodium Level 135 MMOL/L (136-145) L Potassium Level 3.9 MMOL/L (3.5-5.1) Chloride Level 102 MMOL/L (98-107) Carbon Dioxide Level 23 MMOL/L (21-32) Anion Gap 10 mmol/L (5-15) Blood Urea Nitrogen 7 mg/dL (7-18) Creatinine 1.0 MG/DL (0.55-1.30) Estimat Glomerular Filtration Rate > 60 mL/min (>60) Glucose Level 183 MG/DL (74-106) #H Uric Acid 3.3 MG/DL (2.6-7.2) Calcium Level 8.1 MG/DL (8.5-10.1) L Phosphorus Level 2.0 MG/DL (2.5-4.9) L Magnesium Level 1.9 MG/DL (1.8-2.4) Iron Level 112 ug/dL (50-175) Total Iron Binding Capacity 255 ug/dL (250-450) Percent Iron Saturation 44 % (15-50) Unsaturated Iron Binding 143 ug/dL (112-346) Ferritin 480 NG/ML (8-388) H Total Bilirubin 0.4 MG/DL (0.2-1.0) Aspartate Amino Transf (AST/SGOT) 14 U/L (15-37) L Alanine Aminotransferase (ALT/SGPT) 13 U/L (12-78) Alkaline Phosphatase 71 U/L (46-116) Troponin I 0.009 ng/mL (0.000-0.056) Pro-B-Type Natriuretic Peptide 89 pg/mL (0-125) Total Protein 6.1 G/DL (6.4-8.2) L Albumin 2.8 G/DL (3.4-5.0) L Globulin 3.3 g/dL Albumin/Globulin Ratio 0.8 (1.0-2.7) L Vitamin B12 Level 483 PG/ML (193-986) Folate 3.5 NG/ML (8.6-58.9) L General: well developed, well nourished Head: normocophalic Neck: no rigidity Neurologic Exam Mental Status: awake, alert, oriented x4, normal cognition, good mathematical skills, normal recent memory, normal remote memory, preserved visuospatial function Speech: normal speech, no dysarthia Language: normal language, no aphasia Cranial Nerve II: fundus normal, visual armstrong, no papilledema Cranial Nerves III, IV, : PERRLA, EOMI, pupils Cranial Nerve V: normal facial sensations, temporales function normal, masseters function normal, pterygoids function normal Cranial Nerve VII: no facial asymmetry, normal facial expressions Cranial Nerve VIII: normal hearing, no nystagmus Cranial Nerve IX: normal palate elevation, gag response Cranial Nerve X: no voice hoarseness Cranial Nerve XI: SCM symmetric, trapezii function normal Cranial Nerve XII: tongue midline, no tongue atrophy/fasciculations Motor System: normal muscle tone, strength 5/5, no involuntary movement, no muscle wasting Sensory: normal pinprick, normal light touch, normal position sense, normal graphesthesia Coordination: normal finger to nose bilaterally, normal heel to reyna bilaterally, negative Romberg test Deep Tendon Reflexes: 2+ bicep (L), 2+ bicep (R), 2+ tricep (L), 2+ tricep (R) , 2+ brachioradialis (L), 2+ brachioradialis (R), 2+ knee (L), 2+ knee (R), 2+ ankle (L), 2+ ankle (R) Stance: normal Gait: stable, normal regular, heel + toe gait Impression/Recommendations Problems: (1) Syncope and collapse (2) Hyperglycemia due to type 2 diabetes mellitus Status: stable, unchanged Recommendations #[id number] MRI brain NL neuroexam NL neuro IVETH Mejia Jun 16, 2017 10:57
[2017-06-16] MEDS ORDERED: NovoLOG Insulin Flexpen SUBQ SCH (11:50)
[2017-06-16 12:00] VITALS: BP 110/65
--- NOTE | 2017-06-16 13:46 | General Progress Note ---
Assessment/Plan Problem List: (1) Hypokalemia ICD Codes: E87.6 - Hypokalemia SNOMED: 59699873 (2) Syncope and collapse ICD Codes: R55 - Syncope and collapse SNOMED: 916106161 (3) Hyperglycemia due to type 2 diabetes mellitus ICD Codes: E11.65 - Type 2 diabetes mellitus with hyperglycemia SNOMED: 214339683597438, 22879034 Qualifiers: Qualified Codes: E11.65 - Type 2 diabetes mellitus with hyperglycemia Status: unchanged Assessment/Plan ot pt diet bs control cbc bmp am dc plan if clear Subjective Constitutional: Reports: weakness Allergies: Coded Allergies: No Known Allergies (Unverified , 06/14/17) All Systems: reviewed and negative except above Subjective calm in bed Objective Last 24 Hour Vital Signs Date Time Temp Pulse Resp B/P (MAP) Pulse Ox O2 Delivery O2 Flow Rate FiO2 06/16/17 08:00 96.3 104 18 107/71 96 Room Air 96.3 06/16/17 04:00 97.9 92 20 99/69 98 Room Air 97.9 06/16/17 03:33 92 06/16/17 00:00 98.2 98 20 100/59 99 Room Air 98.2 06/15/17 23:54 98 06/15/17 20:00 98.2 93 20 105/69 93 Room Air 98.2 06/15/17 19:06 92 06/15/17 16:00 97.2 98 18 111/72 97 Room Air 97.2 06/15/17 16:00 84 98 107 06/15/17 16:00 90 Intake and Output 06/15/17 06/16/17 19:00 07:00 Intake Total 536 ml Balance 536 ml Intake Oral 536 ml # Voids 1 4 # Bowel Movements 1 Laboratory Tests 06/15/17 15:40: Urine Osmolality 459H, Urine Random Sodium 47, Urine Opiates Screen Negative, Urine Barbiturates Screen Negative, Phencyclidine (PCP) Screen Negative, Urine Amphetamines Screen Negative, Urine Benzodiazepines Screen Negative, Urine Cocaine Screen Negative, Urine Marijuana (THC) Screen Negative 06/16/17 07:00: White Blood Count 6.6, Red Blood Count 3.74L, Hemoglobin 12.0L, Hematocrit 34.2L , Mean Corpuscular Volume 91, Mean Corpuscular Hemoglobin 31.9H, Mean Corpuscular Hemoglobin Concent 34.9, Red Cell Distribution Width 10.7L, Platelet Count 311, Mean Platelet Volume 5.8L, Neutrophils (%) (Auto) , Lymphocytes (%) (Auto) , Monocytes (%) (Auto) , Eosinophils (%) (Auto) , Basophils (%) (Auto) , Differential Total Cells Counted 100, Neutrophils % ( Manual) 38L, Lymphocytes % (Manual) 50H, Monocytes % (Manual) 11H, Eosinophils % (Manual) 0, Basophils % (Manual) 1, Band Neutrophils 0, Platelet Estimate Adequate, Platelet Morphology Normal, Red Blood Cell Morphology Normal, Sodium Level 135L, Potassium Level 3.9, Chloride Level 102, Carbon Dioxide Level 23, Anion Gap 10, Blood Urea Nitrogen 7, Creatinine 1.0, Estimat Glomerular Filtration Rate > 60, Glucose Level 183#H, Uric Acid 3.3, Calcium Level 8.1L, Phosphorus Level 2.0L, Magnesium Level 1.9, Iron Level 112, Total Iron Binding Capacity 255, Percent Iron Saturation 44, Unsaturated Iron Binding 143, Ferritin 480H, Total Bilirubin 0.4, Aspartate Amino Transf (AST/SGOT) 14L, Alanine Aminotransferase (ALT/SGPT) 13, Alkaline Phosphatase 71, Troponin I 0.009, Pro-B-Type Natriuretic Peptide 89, Total Protein 6.1L, Albumin 2.8L, Globulin 3.3, Albumin/Globulin Ratio 0.8L, Vitamin B12 Level 483, Folate 3.5L Height (Feet): 5 Height (Inches): 4.00 Weight (Pounds): 165 General Appearance: alert EENT: normal ENT inspection Neck: normal alignment Cardiovascular: normal peripheral pulses, normal rate, regular rhythm Respiratory/Chest: chest wall non-tender, lungs clear, normal breath sounds Abdomen: normal bowel sounds, non tender, soft Extremities: normal inspection Edema: no edema noted Arm (L), no edema noted Arm (R), no edema noted Leg (L), no edema noted Leg (R), no edema noted Pedal (L), no edema noted Pedal (R), no edema noted Generalized Neurologic: responsive, motor weakness Skin: normal pigmentation, warm/dry OSMIN JONAS Jun 16, 2017 13:46
[2017-06-16] MEDS ORDERED: Tubing IV Secondary IV ONE (14:49)
[2017-06-16] MEDS ORDERED: D5 1/2NS 1000ml IV ONE (14:49)
[2017-06-16] MEDS ORDERED: NS 275ml ONE (14:49)
--- NOTE | 2017-06-16 14:52 | Nephrology Progress Note ---
Assessment/Plan Problem List: (1) Hyperglycemia due to type 2 diabetes mellitus (2) Hyponatremia Assessment Hyponatremia: ? Depletionaal improved DM OOC Anemia Plan Plan: Urine studies Phos supplement S osmolality , TSH , Uric 3% Saline fu after above results monitor lytes Subjective ROS Limited/Unobtainable: No Objective Objective Last 24 Hour Vital Signs Date Time Temp Pulse Resp B/P (MAP) Pulse Ox O2 Delivery O2 Flow Rate FiO2 06/16/17 08:00 96.3 104 18 107/71 96 Room Air 96.3 06/16/17 04:00 97.9 92 20 99/69 98 Room Air 97.9 06/16/17 03:33 92 06/16/17 00:00 98.2 98 20 100/59 99 Room Air 98.2 06/15/17 23:54 98 06/15/17 20:00 98.2 93 20 105/69 93 Room Air 98.2 06/15/17 19:06 92 06/15/17 16:00 97.2 98 18 111/72 97 Room Air 97.2 06/15/17 16:00 84 98 107 06/15/17 16:00 90 Intake and Output 06/15/17 06/16/17 19:00 07:00 Intake Total 536 ml Balance 536 ml Intake Oral 536 ml # Voids 1 4 # Bowel Movements 1 Laboratory Tests 06/15/17 15:40: Urine Osmolality 459H, Urine Random Sodium 47, Urine Opiates Screen Negative, Urine Barbiturates Screen Negative, Phencyclidine (PCP) Screen Negative, Urine Amphetamines Screen Negative, Urine Benzodiazepines Screen Negative, Urine Cocaine Screen Negative, Urine Marijuana (THC) Screen Negative 06/16/17 07:00: White Blood Count 6.6, Red Blood Count 3.74L, Hemoglobin 12.0L, Hematocrit 34.2L , Mean Corpuscular Volume 91, Mean Corpuscular Hemoglobin 31.9H, Mean Corpuscular Hemoglobin Concent 34.9, Red Cell Distribution Width 10.7L, Platelet Count 311, Mean Platelet Volume 5.8L, Neutrophils (%) (Auto) , Lymphocytes (%) (Auto) , Monocytes (%) (Auto) , Eosinophils (%) (Auto) , Basophils (%) (Auto) , Differential Total Cells Counted 100, Neutrophils % ( Manual) 38L, Lymphocytes % (Manual) 50H, Monocytes % (Manual) 11H, Eosinophils % (Manual) 0, Basophils % (Manual) 1, Band Neutrophils 0, Platelet Estimate Adequate, Platelet Morphology Normal, Red Blood Cell Morphology Normal, Sodium Level 135L, Potassium Level 3.9, Chloride Level 102, Carbon Dioxide Level 23, Anion Gap 10, Blood Urea Nitrogen 7, Creatinine 1.0, Estimat Glomerular Filtration Rate > 60, Glucose Level 183#H, Uric Acid 3.3, Calcium Level 8.1L, Phosphorus Level 2.0L, Magnesium Level 1.9, Iron Level 112, Total Iron Binding Capacity 255, Percent Iron Saturation 44, Unsaturated Iron Binding 143, Ferritin 480H, Total Bilirubin 0.4, Aspartate Amino Transf (AST/SGOT) 14L, Alanine Aminotransferase (ALT/SGPT) 13, Alkaline Phosphatase 71, Troponin I 0.009, Pro-B-Type Natriuretic Peptide 89, Total Protein 6.1L, Albumin 2.8L, Globulin 3.3, Albumin/Globulin Ratio 0.8L, Vitamin B12 Level 483, Folate 3.5L Height (Feet): 5 Height (Inches): 4.00 Weight (Pounds): 165 General Appearance: no apparent distress Objective no change ANA HUNTER Jun 16, 2017 14:52
--- NOTE | 2017-06-16 15:47 | Cardiac Electrophysiology PN ---
Assessment/Plan Assessment/Plan 1. Abnormal electrocardiogram with inferior wall ischemia. Ruled out myocardial infarction protocol. He denies any chest pain. Echo EF 65% 2. Severe hypokalemia. Corrected. Repeat 3.9 3. Insulin-dependent diabetes, blood glucose of more than 600, currently on insulin. 4. Status post syncope, could be secondary to the patient's severe hyperglycemia. Carotid duplex negative Subjective Subjective No events overnight.DC planning today Objective Last 24 Hour Vital Signs Date Time Temp Pulse Resp B/P (MAP) Pulse Ox O2 Delivery O2 Flow Rate FiO2 06/16/17 08:00 96.3 104 18 107/71 96 Room Air 96.3 06/16/17 04:00 97.9 92 20 99/69 98 Room Air 97.9 06/16/17 03:33 92 06/16/17 00:00 98.2 98 20 100/59 99 Room Air 98.2 06/15/17 23:54 98 06/15/17 20:00 98.2 93 20 105/69 93 Room Air 98.2 06/15/17 19:06 92 06/15/17 16:00 97.2 98 18 111/72 97 Room Air 97.2 06/15/17 16:00 84 98 107 06/15/17 16:00 90 Intake and Output 06/15/17 06/16/17 19:00 07:00 Intake Total 536 ml Balance 536 ml Intake Oral 536 ml # Voids 1 4 # Bowel Movements 1 Laboratory Tests Test 06/16/17 07:00 White Blood Count 6.6 K/UL (4.8-10.8) Red Blood Count 3.74 M/UL (4.70-6.10) L Hemoglobin 12.0 G/DL (14.2-18.0) L Hematocrit 34.2 % (42.0-52.0) L Mean Corpuscular Volume 91 FL (80-99) Mean Corpuscular Hemoglobin 31.9 PG (27.0-31.0) H Mean Corpuscular Hemoglobin Concent 34.9 G/DL (32.0-36.0) Red Cell Distribution Width 10.7 % (11.6-14.8) L Platelet Count 311 K/UL (150-450) Mean Platelet Volume 5.8 FL (6.5-10.1) L Neutrophils (%) (Auto) % (45.0-75.0) Lymphocytes (%) (Auto) % (20.0-45.0) Monocytes (%) (Auto) % (1.0-10.0) Eosinophils (%) (Auto) % (0.0-3.0) Basophils (%) (Auto) % (0.0-2.0) Differential Total Cells Counted 100 Neutrophils % (Manual) 38 % (45-75) L Lymphocytes % (Manual) 50 % (20-45) H Monocytes % (Manual) 11 % (1-10) H Eosinophils % (Manual) 0 % (0-3) Basophils % (Manual) 1 % (0-2) Band Neutrophils 0 % (0-8) Platelet Estimate Adequate Platelet Morphology Normal Red Blood Cell Morphology Normal Sodium Level 135 MMOL/L (136-145) L Potassium Level 3.9 MMOL/L (3.5-5.1) Chloride Level 102 MMOL/L (98-107) Carbon Dioxide Level 23 MMOL/L (21-32) Anion Gap 10 mmol/L (5-15) Blood Urea Nitrogen 7 mg/dL (7-18) Creatinine 1.0 MG/DL (0.55-1.30) Estimat Glomerular Filtration Rate > 60 mL/min (>60) Glucose Level 183 MG/DL (74-106) #H Uric Acid 3.3 MG/DL (2.6-7.2) Calcium Level 8.1 MG/DL (8.5-10.1) L Phosphorus Level 2.0 MG/DL (2.5-4.9) L Magnesium Level 1.9 MG/DL (1.8-2.4) Iron Level 112 ug/dL (50-175) Total Iron Binding Capacity 255 ug/dL (250-450) Percent Iron Saturation 44 % (15-50) Unsaturated Iron Binding 143 ug/dL (112-346) Ferritin 480 NG/ML (8-388) H Total Bilirubin 0.4 MG/DL (0.2-1.0) Aspartate Amino Transf (AST/SGOT) 14 U/L (15-37) L Alanine Aminotransferase (ALT/SGPT) 13 U/L (12-78) Alkaline Phosphatase 71 U/L (46-116) Troponin I 0.009 ng/mL (0.000-0.056) Pro-B-Type Natriuretic Peptide 89 pg/mL (0-125) Total Protein 6.1 G/DL (6.4-8.2) L Albumin 2.8 G/DL (3.4-5.0) L Globulin 3.3 g/dL Albumin/Globulin Ratio 0.8 (1.0-2.7) L Vitamin B12 Level 483 PG/ML (193-986) Folate 3.5 NG/ML (8.6-58.9) L Objective HEAD AND NECK: Showed no JVD. LUNGS: Clear. CARDIOVASCULAR: Shows regular S1 and S2 with no gallop or murmur. ABDOMEN: Soft. EXTREMITIES: There is no pitting edema. SHABNAM BURNETT Jun 16, 2017 15:47
--- NOTE | 2017-06-16 17:30 | Cardiology Report ---
APPROVED REPORT EKG Measurement Heart [id number] Normal sinus rhythm Right atrial enlargement Rightward axis T wave abnormality, consider inferior ischemia Prolonged QT Abnormal ECG
[2017-06-16] MEDS ORDERED: Phospha 250 Neutral tab ORAL SCH (18:00)
--- NOTE | 2017-06-16 18:40 | Cardiology Report ---
APPROVED REPORT EXAM: Two-dimensional and M-mode echocardiogram with Doppler and color Doppler. INDICATION Arrhythmia M-Mode DIMENSIONS IVSd1.6 (0.7-1.1cm)Left Atrium (MM)2.8 (1.6-4.0cm) LVDd4.5 (3.5-5.6cm)Aortic Root3.7 (2.0-3.7cm) PWd1.3 (0.7-1.1cm)Aortic Cusp Exc.2.1 (1.5-2.0cm) IVSs2.1 cm LVDs3.1 (2.5-4.0cm) PWs1.5 cm Normal left ventricular chamber size, systolic function and wall motioN EXCEPT MILD DISTAL SEPTAL HYPOKINESIS Left ventricular ejection fraction estimated to be 60-65 %. No evidence of left ventricular hypertrophy. Trace posterior pericardial effusion All other cardiac chamber sizes are within normal limits. Focal aortic valve sclerosis with adequate cusp excursion. Mildly Thickened mitral valve leaflets with normal excursion. Mildly Mitral annulus and aortic root calcification. Pulmonic valve not well visualized. Normal tricuspid valve structure. IVC at normal size collapsing .with respiration A color flow and spectral Doppler study was performed and revealed: No aortic insufficiency. Trace mitral regurgitation. Normal left ventricular diastolic function Mild tricuspid regurgitation. Tricuspid systolic velocities suggests peak right ventricular systolic pressure of 34 mmHg,consistent with mild pulmonary hypertension. Trace Pulmonic regurgitation present
--- NOTE | 2017-06-17 00:15 | Consultation ---
DATE OF CONSULTATION: 06/16/2017 CONSULTING PHYSICIAN: Chirag De Jesus M.D. HISTORY OF PRESENT ILLNESS: This is a 52-year-old male patient. The patient was admitted to [facility]. Reason for his admission is hypokalemia, syncope, and he has hypoglycemia, but he is very irritable and agitated. Mood labile. He has a logical plan for his own self-care apparently, but he also has a history of paranoid schizophrenia, currently on Seroquel 300 mg nightly for sleep, . Denies suicidal or homicidal thoughts. PAST MEDICAL HISTORY: Medical problems include hypoglycemia, diabetes, hypokalemia. ALLERGIES: No known drug allergies. SOCIAL HISTORY: Financially supported by [employer]. SUBSTANCE ABUSE HISTORY: Denies drug or alcohol use. MENTAL STATUS EXAMINATION: This is a 52-year-old male patient with psychomotor retardation. Mood is depressed. Affect guarded and restricted. Thought process, disorganized and illogical. Denies any current suicidal or homicidal thoughts. Insight and judgment is fair. DIAGNOSIS: Bipolar 2. PLAN: Continue him on Seroquel 300 mg nightly, but he was . Denies suicidal or homicidal thoughts. He has a plan for self-care so he did not need help . Chart was reviewed and discussed with staff. The patient was seen and assessed in his room. I would like to thank, Dr. Jason Fields, for this interesting consultation. Chirag De Jesus M.D. DR: Robert JOB#: [id number] CC:
--- NOTE | 2017-06-17 22:35 | Diagnostic Imaging Report ---
APPROVED REPORT CPT Code: 42986 Vascular Symptoms Syncope Doppler Spectral Velocity Analysis RightLeft RIGHT SIDE: CCA - Imaging reveals no significant plaque within the extracranial carotid arteries. The Doppler spectral flow analysis is within normal limits throughout the extracranial carotid arteries. VERTEBRAL - The vertebral artery is within normal limits. LEFT SIDE: CCA/BULB- Imaging reveals irregular, minimal plaque in the carotid bulb and external carotid arteries. VERTEBRAL - The vertebral artery is patent, without evidence of stenosis or steal.
--- NOTE | 2017-06-19 10:29 | Discharge Summary ---
Discharge Summary Hospital Course Date of Admission Jun 14, 2017 at 21:49 Date of Discharge Jun 16, 2017 at 14:50 Admitting Diagnosis Hyperglycemia HPI Elliott De Jesus is a 52 year old male who was admitted on Jun 14, 2017 at 21:49 for Hyperglycemia Hospital Course dc summary #[id number] Discharge Discharge Disposition Patient signed AMA Discharge Diagnoses: Discharge Instructions Discharge Instructions Special Instructions I have been assigned to complete a D/C Summary on this account. I was not involved in the patient management Ariana Hickman NP (Vanchtein) Jun 19, 2017 10:29
--- NOTE | 2017-06-19 22:00 | Discharge Summary 2 SIG ---
DATE OF ADMISSION: 06/14/2017 DATE OF SIGNING AGAINST MEDICAL ADVICE: 06/16/2017 REASON FOR ADMISSION: 52-year-old male with past medical history of diabetes and schizophrenia, presented to emergency department for evaluation. According to the patient, he had weakness and dizziness for one week. He also had a syncopal episode. He denied head trauma, fever, or chills. Upon evaluation in the emergency room, the patient was tachycardic - 107. Blood pressure was stable. Pulse oximetry was stable on room air. Blood glucose -609. Potassium -2.7, sodium -116 (calculated sodium -128), BUN -22, and creatinine -1.9. Troponin negative. Urinalysis revealed +4 glucose. Negative acetone. Anion gap within normal limits. EKG showed inferior wall ischemia.Urine toxicology screen was negative. In the emergency department, the patient received 2 liters of fluids. Potassium was replaced and 10 units of insulin was given. ADMITTING DIAGNOSES: 1. Hyperglycemia secondary to diabetes mellitus, out of control. 2. Severe hypokalemia. 3. Hyponatremia, probably depletional. 4. Syncopal episode. 5. Abnormal EKG with inferior wall ischemia. HOSPITAL COURSE: The patient admitted. Endocrinology, Neurology, Nephrology, Cardiology, and Psychiatry consults were requested. Hemoglobin A1c -12. The patient was started on a regimen of long-acting Levemir and short-acting NovoLog before meals as well as a sliding scale of insulin as needed. Regimen was titrated as per supervisor slitting and shipping. The patient was encouraged to comply with medication regimen. The patient was on the IV fluids and prior to signing against medical advice, blood sugar stable. Glucose -183. Neurologist closely followed. Per neurologist, syncopal episode was probably vasovagal. There was no evidence of seizure activity. However, he ordered to check baseline MRI of the brain since the patient demonstrated mild right facial weakness to rule out lacunar stroke to explain new right periorbital weakness. MRI of the brain revealed no acute intracranial bleeding, no mass effect or infarct. Therefore, the stroke was ruled out. Neurologist recommended to consider aspirin and statin in the presence of stroke risk factors. Carotid duplex was essentially negative. Interactive Media Marketing Specialist seen and evaluated the patient due to the abnormal EKG. The patient subsequently had an echocardiogram, which revealed preserved ejection fraction of 60% to 65%, right ventricular systolic pressure of 34 consistent with mild pulmonary hypertension. Troponin x2 were negative. The patient was ruled out for acute OK by accessories repairer. Per accessories repairer, syncope could have been secondary to the patient's severe hyperglycemia. Dizziness resolved when blood sugar was controlled. Superintendent System Operation closely followed the patient. According to senior software quality analyst, hyponatremia was probably depletional. Urine studies,serum osmolality and TSH were preformed. Electrolytes, potassium and phosphorus, were corrected. 3% saline was administered. Prior to signing AMA, sodium- 134, potassium- 3.9, BUN down to 7 from 22, creatinine down to 1.0 from 1.9, and magnesium stable. Psychiatrist seen and evaluated the patient, diagnosed the patient with bipolar disorder, and optimized psychiatric medication regimen. The patient decided to sign against medical advice on 06/16/2017. The risk and consequences of signing against medical advice were discussed with the patient. The patient was asked to wait for primary care provider because possible discharge was planned. However, the patient declined to leave, verbalized understanding of the risks and consequences, signed the form, and left. FINAL DIAGNOSES: 1. Hyperglycemia secondary to diabetes mellitus out of control. 2. Severe hypokalemia, resolved. 3. Severe hyponatremia, probably depletional. 4. Syncopal episode, likely vasovagal versus secondary to severe hyperglycemia. 5. Bipolar type 2. 6. Abnormal EKG with inferior wall ischemia. Jason Fields D.O. I have been assigned to dictate discharge summary on this account and I was not involved in the patient's management. Ariana LoweryDomonique sheridan DR: Torin JOB#: [id number] CC: ALFREDO
== END 2017-06-16 14:50 | disposition left against medical advice (07) | DRG 420 ==
LOC: EMR 18:12 → 2E 21:49 → EDBEDREQSVC 22:37 → EDBEDREQ 22:37 → 2E 06-15 11:25
DX: E11.65 Type 2 diabetes mellitus with hyperglycemia (principal); E87.1 Hypo-osmolality and hyponatremia; Z79.4 Long term (current) use of insulin; E86.0 Dehydration; E87.6 Hypokalemia; R55 Syncope and collapse; I25.89 Other forms of chronic ischemic heart disease; F31.81 Bipolar II disorder
CPT/HCPCS: 36415; 36600; 70551; 80048; 80053; 80061; 80307; 81003; 82009; 82607; 82728; 82746; 82803; 82962; 83036; 83540; 83550; 83735; 83880; 83930; 83935; 84100; 84300; 84443; 84484; 84550; 85007; 85025; 86140; 93005; 93306; 93880; 99285; J1815; J8499; S5561

== ENCOUNTER 2019-12-14 15:09 | Emergency (ER) | payer OTHER ==
[~2019-12-14] VITALS: Ht 165.1 cm; Wt 72.6 kg
[~2019-12-14 15:09] MED LIST: LANTUS SOL100 UNIT/1 SUBQ; SEROQUEL300 MG ORAL
[2019-12-14 15:16] VITALS: BP 160/88
--- NOTE | 2019-12-14 15:16 | NUR ---
ED Nurse Note: pt came in walking from home due to feeling dizzy after taking 2 bottles of Nyquil last night. Per pt he has been unable to sleep since Monday, and reports not taking other medications. Pt is alert and oriented x3, respirations are even and unlabored, pt is tachycardic HR 100-105, RA 100%. Other vitals stable as documented.
--- NOTE | 2019-12-14 15:25 | NUR ---
ED Nurse Note: pt reports unable to give urine sample at this time
--- NOTE | 2019-12-14 15:41 | NUR ---
ED Nurse Note: x-ray at bedside.
--- NOTE | 2019-12-14 15:55 | Diagnostic Imaging Report ---
EXAM: XR Chest, 1 View CLINICAL HISTORY: PAIN TECHNIQUE: Frontal view of the chest. COMPARISON: No relevant prior studies available. FINDINGS: Lungs: Unremarkable. No consolidation. Pleural space: Mild elevation of the left hemidiaphragm. No pneumothorax. Heart/mediastinum: Status post sternotomy. Bones/joints: Minimal thoracic dextrocurvature. IMPRESSION: No evidence of acute pulmonary disease
[2019-12-14 16:02] LABS: BASOPHILS % (AUTO) 1.2 % (0.0-2.0); EOSINOPHILS % (AUTO) 0.1 % (0.0-3.0); HEMATOCRIT 34.7 % (42.0-52.0); LYMPHOCYTES % (AUTO) 20.1 % (20.0-45.0); MEAN CORPUSCULAR VOLUME 91 FL (80-99); MONOCYTES % (AUTO) 10.6 % (1.0-10.0); NEUTROPHILS % (AUTO) 68.2 % (45.0-75.0); PLATELET COUNT 376 K/UL (150-450); RED BLOOD COUNT 3.81 M/UL (4.70-6.10); RED CELL DISTRIBUTION WIDTH 11.2 % (11.6-14.8)
--- NOTE | 2019-12-14 16:20 | NUR ---
ED Nurse Note: pt unable to void on his own attempted multiple times, pt states "It wont come out." Pt agreed for in and out straight catheter. Urine obtained and sent to lab.
--- NOTE | 2019-12-14 16:23 | NUR ---
ED Nurse Note: Addendum: 12/14/19 at 1625 by MILANA ED Nurse Note: urine sample sent to lab
[2019-12-14 16:28] LABS: ANION GAP 15 mmol/L (5-15); BLOOD UREA NITROGEN 10 mg/dL (7-18); CALCIUM 8.7 MG/DL (8.5-10.1); CARBON DIOXIDE 22 MMOL/L (21-32); CHLORIDE 89 MMOL/L (98-107); CREATININE 1.9 MG/DL (0.55-1.30); POTASSIUM 3.1 MMOL/L (3.5-5.1); SODIUM 126 MMOL/L (136-145)
[2019-12-14 16:32] LABS: ALANINE AMINOTRANSFERASE 19 U/L (12-78); ALBUMIN/GLOBULIN RATIO 1.1 (1.0-2.7); ALKALINE PHOSPHATASE 88 U/L (46-116); ASPARTATE AMINO TRANSFERASE 20 U/L (15-37); BILIRUBIN,TOTAL 0.4 MG/DL (0.2-1.0)
--- NOTE | 2019-12-14 16:33 | Emergency Room Report ---
History of Present Illness General Chief Complaint: Overdose Source: Medical Record Present Illness HPI 54-year-old male with unknown psychiatric history reports that he takes Seroquel however has not taken complaining of feeling dizzy and nauseated after taking 2 bottles of NyQuil to sleep last night. Patient reports that due to him not taking his Seroquel and long time he has not been able to sleep therefore he ended up drinking 2 bottles of" blue NyQuil. Patient does not have the bottles with him. Denies taking any medication, alcohol, and illicit drug use. Denies chest pain, diffuse abdominal pain, diarrhea. Denies cough and congestion fever and chills. Speaking full sentences, answers all questions , neurovascularly intact. Patient is a poor historian. Denies SI and HI Allergies: Coded Allergies: No Known Allergies (Unverified , 06/14/17) COVID-19 Screening Contact w/high risk pt: No Experienced COVID-19 symptoms?: No COVID-19 Testing performed STEEL WHEEL ENGRAVER: No Patient History Past Medical History: see triage record Past Surgical History: none Pertinent Family History: none Reviewed Nursing Documentation: PMH: Agreed; PSxH: Agreed Nursing Documentation-PMH Past Medical History: No History, Except For Hx Cardiac Problems: No Hx Diabetes: Yes Hx Cancer: No Hx Gastrointestinal Problems: No Hx Neurological Problems: No Review of Systems All Other Systems: negative except mentioned in HPI Physical Exam Vital Signs Date Time Temp Pulse Resp B/P (MAP) Pulse Ox O2 Delivery O2 Flow Rate FiO2 12/14/19 15:13 99.1 108 21 149/86 (107) 99 Room Air Sp02 EP Interpretation: reviewed, normal General Appearance: alert, GCS 15, non-toxic, mild distress Head: normocephalic, atraumatic Eyes: bilateral eye normal inspection, bilateral eye PERRL ENT: hearing grossly normal, normal pharynx, no angioedema, normal voice Neck: full range of motion, supple/symm/no masses Respiratory: chest non-tender, lungs clear, normal breath sounds, no rhonchi, no respiratory distress, no retraction, no accessory muscle use, speaking full sentences Cardiovascular #1: no edema Gastrointestinal: non tender, soft, no mass Rectal: deferred Genitourinary: no CVA tenderness Musculoskeletal: back normal, no calf tenderness Neurologic: alert, motor strength/tone normal, oriented x3, sensory intact, responsive, speech normal Psychiatric: judgement/insight normal, memory normal, no suicidal/homicidal ideation, anxious Skin: no rash Lymphatic: no adenopathy Medical Decision Making PA Attestation All my diagnosis and treatment plans were reviewed ad discussed with my supervising physician Dr. Gamez Diagnostic Impression: Primary Impression: Drug overdose Additional Impressions: Medication refill Marijuana abuse ER Course 54-year-old male with unknown psychiatric history reports that he takes Seroquel however has not taken complaining of feeling dizzy and nauseated after taking 2 bottles of NyQuil to sleep last night. Patient reports that due to him not taking his Seroquel and long time he has not been able to sleep therefore he ended up drinking 2 bottles of" blue NyQuil. Patient does not have the bottles with him. Denies taking any medication, alcohol, and illicit drug use. Denies chest pain, diffuse abdominal pain, diarrhea. Denies cough and congestion fever and chills. Speaking full sentences, answers all questions , neurovascularly intact. Patient is a poor historian. Denies SI and HI Ddx considered but are not limited to: generalized anxiety disorder, panic attack, depression with psycotic featurs, bipolar disorder, drug overdose Vital signs: are WNL, pt. is afebrile H&PE are most consistent with: Medication overdose ORDERS: Psychiatric order set, Seroquel ED INTERVENTIONS: NS bolus, Zofran, Pepcid Patient stable to be discharged, poison control advised contacting repeat Tylenol levels, LFTs, serum alcohol level and sodium repeat test Within normal limits and discharged with stable to be discharged DISCHARGE: At this time pt. is stable for d/c to home. Will provide printed patient care instructions, and any necessary prescriptions. Care plan and follow up instructions have been discussed with the patient prior to discharge. Take medication as directed, follow-up with your psychiatrist, increase oral hydration, avoid drinking NyQuil, if worsening symptoms return to the emergency room EKG Diagnostic Results Rate: normal Rhythm: NSR ST Segments: no acute changes Other Impression No acute ST changes Chest X-Ray Diagnostic Results Chest X-Ray Diagnostic Results : Chest X-Ray Ordered: Yes # of Views/Limited/Complete: 1 View Indication: Other EP Interpretation: Yes PA Xray: Interpretation reviewed, by supervising MD, and agrees with findings. Interpretation: no consolidation, no effusion, no pneumothorax Impression: No acute disease Electronically Signed by: Yesi Salvador PA-C Last Vital Signs Date Time Temp Pulse Resp B/P (MAP) Pulse Ox O2 Delivery O2 Flow Rate FiO2 12/14/19 15:16 98.7 111 22 160/88 99 Room Air Disposition: HOME, SELF-CARE Condition: Stable Referrals: NON PHYSICIAN (PCP) Patient Instructions: Drug Overdose Additional Instructions: Take medication as directed, follow-up with your psychiatrist, increase oral hydration, avoid drinking NyQuil, if worsening symptoms return to the emergency room. Avoid using marijuana Yesi Ndiaye Dec 14, 2019 16:33
[2019-12-14 16:34] LABS: APPEARANCE,URINE CLEAR; BILIRUBIN, URINE NEGATIVE (NEGATIVE); GLUCOSE, URINE (UA) 4+ (NEGATIVE); KETONES,URINE NEGATIVE (NEGATIVE); LEUKOCYTE ESTERASE ,URINE NEGATIVE (NEGATIVE); NITRITE,URINE NEGATIVE (NEGATIVE); PH,URINE 6 (4.5-8.0); PROTEIN,URINE 2+ (NEGATIVE); UROBILINOGEN,URINE 1 MG/DL (0.0-1.0)
[2019-12-14 16:49] LABS: COLOR,URINE YELLOW
--- NOTE | 2019-12-14 18:30 | NUR ---
ED Nurse Note: CMP and other blood samples sent to lab.
[2019-12-14 18:54] LABS: CALCIUM 7.7 MG/DL (8.5-10.1); CREATININE 1.7 MG/DL (0.55-1.30)
[2019-12-14 18:59] LABS: ALBUMIN 3.6 G/DL (3.4-5.0); ALBUMIN/GLOBULIN RATIO 1.2 (1.0-2.7); BILIRUBIN,TOTAL 0.5 MG/DL (0.2-1.0)
--- NOTE | 2019-12-14 19:07 | NUR ---
HAND-OFF: Report given to AGUSTIN Kellogg.
[2019-12-14] MEDS ORDERED: SEROQUEL100 MG ORAL (19:39)
[2019-12-14 19:55] VITALS: BP 160/88
--- NOTE | 2019-12-14 19:55 | NUR ---
ER DISCHARGE NOTE: Patient is cleared to be discharged per ERMD, pt is aox4, on room air, with stable vital signs. pt was given dc and prescription instructions, pt was able to verbalize understanding, pt id band and iv site removed without complications. pt is able to ambulate with steady gait. pt took all belongings.
--- NOTE | 2019-12-18 21:57 | Cardiology Report ---
APPROVED REPORT EKG Measurement Heart [id number] <Conclusion> Normal sinus rhythm Prolonged QT Abnormal ECG
== END 2019-12-14 19:55 | disposition home or self-care (01) ==
LOC: EMR 15:44
DX: T50.991A Poisoning by other drugs, medicaments and biological substances, accidental (unintentional), initial encounter (principal); Y92.9 Unspecified place or not applicable; F12.10 Cannabis abuse, uncomplicated; Z76.0 Encounter for issue of repeat prescription; E11.9 Type 2 diabetes mellitus without complications
CPT/HCPCS: 36415; 71045; 80053; 80307; 81003; 84484; 85025; 93005; 96361; 96365; 96375; G0480; G0481; J2550; J7030; S0028; Z7502; 99284; J8499